=== PATIENT | male | born 1965 | race Caucasian/White ===

== ENCOUNTER 2019-05-08 10:46 | Day surgery (SDC) | payer OTHER ==
[~2019-05-08] VITALS: Ht 170.2 cm; Wt 65.7 kg
--- NOTE | 2019-05-08 11:29 | NUR ---
05/08/19 1129 Karri Ruiz PT REFUSED LIDOCAINE FOR IV START. HE DIDNT WANT THE EXTRA POKE-CMT
== END 2019-05-08 12:51 | disposition home or self-care (01) ==
LOC: ORSCSDS 10:46
DX: R19.7 Diarrhea, unspecified (principal); R63.4 Abnormal weight loss; D12.5 Benign neoplasm of sigmoid colon; Z85.9 Personal history of malignant neoplasm, unspecified; R63.0 Anorexia; F17.210 Nicotine dependence, cigarettes, uncomplicated
CPT/HCPCS: 88305; 88342; J2250; J2704; J7120

== ENCOUNTER → 2019-05-29 | Outpatient (CLI) | payer OTHER ==
[2019-05-29 16:13] LABS: Adenovirus F 40/41 Not Detected (NOT DETECT); Astrovirus Not Detected (NOT DETECT); Campylobacter Sp Not Detected (NOT DETECT); Cryptosporidium Not Detected (NOT DETECT); Cyclospora Cayetanensis Not Detected (NOT DETECT); E. Coli O157 Not Detected (NOT DETECT); Entamoeba Histolytica Not Detected (NOT DETECT); Enteroaggregative E. coli-EAEC Not Detected (NOT DETECT); Enteropathogenic E. coli-EPEC Not Detected (NOT DETECT); Enterotoxigenic E. coli-ETEC Not Detected (NOT DETECT); Giardia Lamblia Not Detected (NOT DETECT); Norovirus GI/GII Not Detected (NOT DETECT); Plesiomonas Shigelloides Not Detected (NOT DETECT); Rotavirus A Not Detected (NOT DETECT); Salmonella Sp Not Detected (NOT DETECT); Sapovirus Not Detected (NOT DETECT); Shiga Toxin-prod E. coli-STEC Not Detected (NOT DETECT); Shigella/Enteroin E. coli-EIEC Not Detected (NOT DETECT); Vibrio Cholerae Not Detected (NOT DETECT); Vibrio Sp Not Detected (NOT DETECT); Yersinia Enterocolitica Not Detected (NOT DETECT)
== END | disposition home or self-care (01) ==
LOC: OLS 12:12 → LAB SHORT 12:12
PROVIDERS: Internal Medicine Gastroenterology
DX: R19.7 Diarrhea, unspecified (principal); R63.4 Abnormal weight loss
CPT/HCPCS: 0097U

== ENCOUNTER 2019-06-15 19:17 | Emergency (ER) | payer OTHER ==
[~2019-06-15] VITALS: Ht 170.2 cm; Wt 69.8 kg
== END 2019-06-15 20:17 | disposition home or self-care (01) ==
LOC: ER 19:17
DX: S61.411A Laceration without foreign body of right hand, initial encounter (principal); F17.200 Nicotine dependence, unspecified, uncomplicated; W26.8XXA Contact with other sharp object(s), not elsewhere classified, initial encounter
CPT/HCPCS: 12002; 99282-25

== ENCOUNTER → 2023-06-23 | Outpatient (CLI) | payer BC, OTHER ==
[~2023-06-23] MED LIST: CYCL10 PO; IBUP800 PO; LIDO700A20 TOP
== END | disposition home or self-care (01) ==
LOC: LAB 15:32 → LAB SHORT 15:32
DX: N39.0 Urinary tract infection, site not specified (principal)
CPT/HCPCS: 87086

== ENCOUNTER 2023-06-25 13:34 | Emergency (ER) | payer BC, OTHER ==
[~2023-06-25] VITALS: Ht 170.2 cm; Wt 69.4 kg
[2023-06-25 13:53] VITALS: BP 134/89
[2023-06-25] MEDS ORDERED: CYCL10 PO (15:47)
[2023-06-25] MEDS ORDERED: LIDO700A20 TOP (15:47)
[2023-06-25] MEDS ORDERED: IBUP800 PO (15:47)
== END 2023-06-25 15:55 | disposition home or self-care (01) ==
LOC: ER 13:34
DX: M54.42 Lumbago with sciatica, left side (principal); F17.200 Nicotine dependence, unspecified, uncomplicated
CPT/HCPCS: 96372; 99283-25; A9270; J1885